=== PATIENT | female | born 1950 | race Caucasian/White ===

== ENCOUNTER 2017-04-21 00:37 | Emergency (ER) | payer OTHER ==
[2017-04-21 01:08] LABS: % EOSINOPHILS 2.3 % (0.0-5.0); % LYMPHOCYTES 41.1 % (20.0-50.0); % MONOCYTES 7.1 % (2.0-10.0); % NEUTROPHILS 49.5 % (40.0-80.0); EOSINOPHILE ABSOLUTE 0.1 Th/cmm (0.1-0.4); HEMATOCRIT 25.7 % (41.0-60); HEMOGLOBIN 8.4 gm/dL (12-16); LYMPHOCYTE ABSOLUTE 1.1 Th/cmm (1.5-3.0); MEAN CELL VOLUME 101.8 fl (81-100); MEAN CORPUSCULAR HEMOGLOBIN 33.5 pg (27.0-31.0); MEAN CORPUSCULAR HGB CONC 32.9 pg (28.0-36.0); MEAN PLATELET VOLUME 7.1 fl; MONOCYTE ABSOLUTE 0.2 Th/cmm (0.3-1.0); NEUTROPHILE ABSOLUTE 1.3 Th/cmm (1.8-8.0); PLATELET COUNT 42 Th/cmm (150-400); RED BLOOD COUNT 2.52 Mil/cmm (3.80-5.20); RED CELL DISTRIBUTION WIDTH 23.1 % (11.5-20.0)
[2017-04-21 01:16] LABS: WHITE BLOOD COUNT 2.7 Th/cmm (4.8-10.8)
[2017-04-21 01:40] LABS: ANION GAP 11.3 (7.0-16.0); CARBON DIOXIDE 28.7 mEq/L (21.0-31.0)
[2017-04-21 01:41] LABS: ALB/GLOB RATIO 0.9 (1.0-1.8); ALBUMIN 3.3 gm/dL (3.7-5.3); BILIRUBIN,TOTAL 3.3 mg/dL (0.3-1.0); CALCIUM SERUM 9.3 mg/dL (8.6-10.3); CREATININE - SERUM 4.4 mg/dL (0.6-1.2); GFR AFRICAN-AMERICAN 12.9 ml/min (>90); GFR NON AFRICAN-AMERICAN 10.7 ml/min
--- NOTE | 2017-04-21 01:51 | ED Physician Chart ---
ED Chief Complaint/HPI - Patient Information Date Seen:: 04/21/17 Time Seen:: 01:40 Chief Complaint:: Abdominal pain after missing dialysis a day ago History of Present Illness:: 66 yo female had liver cirrhosis, ascites and end stage kidney disease. She was discharged from [facility] a week ago. She had been on dialysis Mon-Wed-Wed. She missed dialysis one day ago. Subsequently, she developed right sided abdominal pain with nausea and vomiting today. The abdominal pain would not subside. She also had some cough with SOB. She was brought by BLS to [facility] ER. Allergies:: Allergies Allergy/AdvReac Type Severity Reaction Status Date / Time prednisone Allergy Verified 04/21/17 00:53 spironolactone Allergy Verified 04/21/17 00:53 [From Aldactone] Sulfa (Sulfonamide Allergy Verified 04/21/17 00:53 Antibiotics) Vitals:: Vital Signs - 8 hr 04/21/17 00:40 Temp 98.4 F HR 95 RR 18 BP 141/71 O2 Sat % 98 ED Review of Systems - Review of Systems General/Constitutional: No fever Skin: No rash, Other (jaundice) Head: No headache Eyes: No pain ENT: No nasal drainage Neck: No neck pain Cardio Vascular: edema Pulmonary: SOB GI: Nausea, Vomiting, Pain Musculoskeletal: Bone or joint pain, Other (Left knee pain) ED Past Medical History - Past Medical History Past Medical History: HTN, DM, ESRD, Thyroid disorder, Other (liver cirrhosis) Social History: Non Smoker, No Alcohol, No Drug Use Surgical History: Cholecystectomy Family Medical History - Family Member Mother Brother History Unknown: Yes ED Physical Exam - Physical Examination General/Constitutional: Awake Head: Atraumatic Eyes: PERRL Other Skin comments:: jaundice ENMT: Nasal exam nl Neck: No nuchal rigidity Other Respiratory comments:: Decreased right lung sound Cardio Vascular: RRR, No murmur, gallop, rubs, NL S1 S2 Other GI comments:: RUQ and RLQ tenderness, abdomen distention, umbilical hernia Neuro/Psych: Alert/oriented ED Labs/Radiology/EKG Results - Lab Results Results: Laboratory Tests 04/21/17 04/21/17 00:56 00:56 WBC 2.7 L RBC 2.52 L Hgb 8.4 L Hct 25.7 L MCV 101.8 H MCH 33.5 H MCHC Differential 32.9 RDW 23.1 H Plt Count 42 L MPV 7.1 Neutrophils % 49.5 Lymphocytes % 41.1 Monocytes % 7.1 Eosinophils % 2.3 Basophils % 0.0 Whole Bld Lactic Acid 2.22 H* - Radiology Results Results: CT abdomen/pelvis without contrast: large right-sided pleural effusion with adjacent atelectasis, cirrhosis, large ascites, splenomegaly with portosystemic collaterals ED Assessment - Assessment General Assessment: Large right pleural effusion Ascites Liver cirrhosis End stage renal disease Leukopenia Anemia Thrombocytopenia Left knee pain Assessment/Comments:: CBC, CMP, lipase CXR, CT abdomen without contrast Zosyn 3.375mg IV Patient to be transferred to [place] authorized by Dr. Hensley (#[id number]). ED Septic Shock - . Is Septic Shock (SBP<90, OR Lactate>4 mmol\L) present?: No - <6hrs of presentation: Vital Signs: Vital Signs - 8 hr 04/21/18 00:40 Temp 98.4 F HR 95 RR 18 BP 141/71 O2 Sat % 98 ED Reassessment (Disposition) - Reassessment Reassessment Condition:: Improved - Patient Disposition Discharge/Transfer:: Acute Care (other hosp) Accepting Physician:: Dr. Hensley
[2017-04-21] MEDS ORDERED: Piperacillin Sodium/Tazobact 3.375 gm Vial IV ONE (03:41)
[2017-04-21] MEDS ORDERED: Morphine Sulfate 2 mg/mL 1mL Syr ONE (03:53)
[2017-04-21] MEDS ORDERED: Morphine Sulfate 2 mg/mL 1mL Syr IV STA (03:53)
--- NOTE | 2017-04-21 07:52 | Diagnostic Imaging Report ---
Exam: Chest portable HISTORY: Cough. 5: Portable examination of chest at 0248 hours reviewed no prior studies available comparison. The study demonstrates extensive right-sided infiltrate with superimposed effusion. Right subclavian catheter terminates in superior vena cava. There is evidence for congestive heart failure bilaterally. The bony thorax intact. IMPRESSION: 1. Mild congestion 2. Right-sided infiltrate superimposed effusion follow-up dictation recommended.
--- NOTE | 2017-04-21 08:02 | Diagnostic Imaging Report ---
Exam: CT examination abdomen pelvis. HISTORY: Abdominal pain Total DLP equals 548 CTDI equals 10.5 Findings: Multiple contiguous thin section of the abdomen pelvis obtained from lower thorax to the pubic symphysis without administration of intravenous or oral contrast material. No prior studies available comparison. The study demonstrates extensive right-sided effusion superimposed pneumonia The visualized left lung parenchyma is well aerated. The study demonstrates cirrhotic appearance of liver parenchyma. There is evidence for ascitic fluid in the abdomen. There is evidence of previous cholecystectomy. There is evidence of splenomegaly. Pancreas poorly seen. There is evidence for left adrenal mass. The kidneys demonstrate no evidence of obstructive uropathy or nephrolithiasis. Induration of mesentery most likely due to fluid collection abdomen. There is evidence for ventral hernia with herniation of mesentery there is no evidence of bowel strangulation. There is evidence for fecal impaction. Urinary bladder is intact. There is evidence for anasarca. Bony structures demonstrate no evidence for lytic or blastic lesions. Total left hip prosthesis isn't visualized. There is a most likely old compression fracture of the L2, L1, T12 and T11 thoracic vertebrae. IMPRESSION: Right-sided pleural effusion pneumonia Cirrhotic liver Splenomegaly most likely portal hypertension. Status post cholecystectomy Left adrenal mass Fecal impaction Surgically absent uterus. Ventral hernia containing mesentery. Anasarca
== END 2017-04-21 07:10 | disposition short-term general hospital (02) ==
LOC: ER 00:37
DX: K70.31 Alcoholic cirrhosis of liver with ascites (principal); J91.8 Pleural effusion in other conditions classified elsewhere; I12.0 Hypertensive chronic kidney disease with stage 5 chronic kidney disease or end stage renal disease; E11.22 Type 2 diabetes mellitus with diabetic chronic kidney disease; N18.6 End stage renal disease; D64.9 Anemia, unspecified; D72.829 Elevated white blood cell count, unspecified; D69.6 Thrombocytopenia, unspecified; M25.562 Pain in left knee
CPT/HCPCS: 99285; 96365; 96375; 93005; 71045; 74176; 36415; 83605 ×2; 85025; 83690; 80053; 87040; J2270; J2405; J2543

== ENCOUNTER 2017-05-05 02:25 | Emergency (ER) | payer OTHER ==
--- NOTE | 2017-05-05 02:45 | ED Physician Chart ---
ED Chief Complaint/HPI - Patient Information Date Seen:: 05/05/17 Time Seen:: 02:40 Chief Complaint:: SOB History of Present Illness:: 66 yo female had ESRD on dialysis every Wed, Wed and Wednesday. She missed dialysis two days ago and had one rescue dialysis for 4 hours one day ago. After the dialysis, patient developed SOB and chest pain. The chest pain was intermittent, mostly in right chest radiating to the left chest. The SOB and chest pain gradually became worse and patient called 911 today. Allergies:: Allergies Allergy/AdvReac Type Severity Reaction Status Date / Time prednisone Allergy Verified 04/21/17 00:53 spironolactone Allergy Verified 04/21/17 00:53 [From Aldactone] Sulfa (Sulfonamide Allergy Verified 04/21/17 00:53 Antibiotics) <Marshall Blanco - Last Filed: 05/05/17 04:43> - Patient Information Allergies:: Allergies Allergy/AdvReac Type Severity Reaction Status Date / Time prednisone Allergy Verified 04/21/17 00:53 spironolactone Allergy Verified 04/21/17 00:53 [From Aldactone] Sulfa (Sulfonamide Allergy Verified 04/21/17 00:53 Antibiotics) Vitals:: Vital Signs - 8 hr 05/05/17 05/05/17 11:46 12:26 Temp 98.1 F 98.0 F HR 94 94 RR 13 14 BP 145/60 149/65 O2 Sat % 95 94 <Bradley Mantilla - Last Filed: 05/05/17 12:57> ED Review of Systems - Review of Systems General/Constitutional: No fever Skin: No rash Head: No headache Eyes: No pain ENT: No earache Neck: No neck pain Cardio Vascular: Chest pain Pulmonary: SOB, Cough, No sputum GI: Nausea, No vomiting Musculoskeletal: Other (Left knee pain) Neurological: No focal symptoms <Marshall Blanco - Last Filed: 05/05/17 04:43> ED Past Medical History - Past Medical History Past Medical History: HTN, DM, ESRD, Other (Liver cirrhosis due to fatty liver) Social History: Non Smoker, No Alcohol, No Drug Use Surgical History: Cholecystectomy, other <Marshall Blanco - Last Filed: 05/05/17 04:43> Family Medical History - Family Member Mother Brother History Unknown: Yes <Marshall Blanco - Last Filed: 05/05/17 04:43> ED Physical Exam - Physical Examination General/Constitutional: Awake, Alert Head: Atraumatic Eyes: PERRL Other Skin comments:: jaundice ENMT: Nasal exam nl Neck: No nuchal rigidity Other Respiratory comments:: Diminished lung sound RLL Cardio Vascular: RRR, NL S1 S2 Other Cardio Vascular comments:: II/ systolic murmurs GI: No tenderness/rebounding/guarding Extremities: No tenderness or effusion, No edema Neuro/Psych: Alert/oriented, No focal deficits <BellaJosdanae - Last Filed: 05/05/17 04:43> ED Labs/Radiology/EKG Results - Lab Results Results: Laboratory Results - last 24 hr 05/05/17 05/05/17 05/05/17 02:49 02:59 02:59 WBC 1.5 L* RBC 1.73 L Hgb 5.8 L* Hct 17.3 L* MCV 100.0 MCH 33.8 H MCHC Differential 33.8 RDW 18.4 Plt Count 23 L* MPV 6.9 PT INR PTT (Actin FS) D-Dimer Specimen Source ARTERIAL Sample Site RB pH 7.48 H pCO2 43.0 pO2 77.0 L HCO3 30.8 H Base Excess 7.6 H O2 Saturation 96.0 Audi Test Positive Vent Rate N/A Inspired O2 21 Tidal Volume N/A PEEP N/A Pressure (ins/psv/peep) N/A Critical Value MM,MARKETING TRAFFIC COORDINATOR Sodium 137 Potassium 3.6 Chloride 102 Carbon Dioxide 30.1 Anion Gap 8.5 BUN 23 Creatinine 2.1 H Est GFR ( Amer) 30.3 Est GFR (Non-Af Amer) 25.0 BUN/Creatinine Ratio 11.0 Glucose 143 H Whole Bld Lactic Acid Calcium 9.2 Total Bilirubin 2.1 H AST 32 ALT 13 Alkaline Phosphatase 111 H Troponin I B-Natriuretic Peptide Total Protein 6.7 Albumin 3.2 L Globulin 3.5 Albumin/Globulin Ratio 0.9 L 05/05/17 05/05/17 05/05/17 02:59 02:59 02:59 WBC RBC Hgb Hct MCV MCH MCHC Differential RDW Plt Count MPV PT 14.4 H INR 1.36 PTT (Actin FS) 43.5 H D-Dimer 2810 H Specimen Source Sample Site pH pCO2 pO2 HCO3 Base Excess O2 Saturation Audi Test Vent Rate Inspired O2 Tidal Volume PEEP Pressure (ins/psv/peep) Critical Value Sodium Potassium Chloride Carbon Dioxide Anion Gap BUN Creatinine Est GFR ( Amer) Est GFR (Non-Af Amer) BUN/Creatinine Ratio Glucose Whole Bld Lactic Acid 1.83 Calcium Total Bilirubin AST ALT Alkaline Phosphatase Troponin I B-Natriuretic Peptide Total Protein Albumin Globulin Albumin/Globulin Ratio 05/05/17 05/05/17 03:53 03:53 WBC RBC Hgb Hct MCV MCH MCHC Differential RDW Plt Count MPV PT INR PTT (Actin FS) D-Dimer Specimen Source Sample Site pH pCO2 pO2 HCO3 Base Excess O2 Saturation Audi Test Vent Rate Inspired O2 Tidal Volume PEEP Pressure (ins/psv/peep) Critical Value Sodium Potassium Chloride Carbon Dioxide Anion Gap BUN Creatinine Est GFR ( Amer) Est GFR (Non-Af Amer) BUN/Creatinine Ratio Glucose Whole Bld Lactic Acid Calcium Total Bilirubin AST ALT Alkaline Phosphatase Troponin I 0.01 B-Natriuretic Peptide 307.0 H Total Protein Albumin Globulin Albumin/Globulin Ratio - Radiology Results Results: CXR: right lung effusion <Marshall Blanco - Last Filed: 05/05/17 04:43> - Lab Results Results: Laboratory Tests 05/05/17 05/05/17 05/05/17 02:49 02:59 02:59 WBC 1.5 L* RBC 1.73 L Hgb 5.8 L* Hct 17.3 L* MCV 100.0 MCH 33.8 H MCHC Differential 33.8 RDW 18.4 Plt Count 23 L* MPV 6.9 Neutrophils % Band Neutrophils % 2 Lymphocytes % Monocytes % Eosinophils % Basophils % Neutrophils (Manual) 52 Lymphocytes 43 Eosinophils 3 Hypochromia 1+ Platelet Estimate DECREASED PLATELETS Poikilocytosis 1+ Anisocytosis 1+ Ovalocytes 1+ Schistocytes 1+ Smear Path Review YES PT INR PTT (Actin FS) D-Dimer Specimen Source ARTERIAL Sample Site RB pH 7.48 H pCO2 43.0 pO2 77.0 L HCO3 30.8 H Base Excess 7.6 H O2 Saturation 96.0 Audi Test Positive Vent Rate N/A Inspired O2 21 Tidal Volume N/A PEEP N/A Pressure (ins/psv/peep) N/A Critical Value MM,MARKETING TRAFFIC COORDINATOR Sodium 137 Potassium 3.6 Chloride 102 Carbon Dioxide 30.1 Anion Gap 8.5 BUN 23 Creatinine 2.1 H Est GFR ( Amer) 30.3 Est GFR (Non-Af Amer) 25.0 BUN/Creatinine Ratio 11.0 Glucose 143 H Whole Bld Lactic Acid Calcium 9.2 Total Bilirubin 2.1 H AST 32 ALT 13 Alkaline Phosphatase 111 H Troponin I B-Natriuretic Peptide Total Protein 6.7 Albumin 3.2 L Globulin 3.5 Albumin/Globulin Ratio 0.9 L Blood Type Antibody Screen Crossmatch 05/05/17 05/05/17 05/05/17 02:59 02:59 02:59 WBC RBC Hgb Hct MCV MCH MCHC Differential RDW Plt Count MPV Neutrophils % Band Neutrophils % Lymphocytes % Monocytes % Eosinophils % Basophils % Neutrophils (Manual) Lymphocytes Eosinophils Hypochromia Platelet Estimate Poikilocytosis Anisocytosis Ovalocytes Schistocytes Smear Path Review PT 14.4 H INR 1.36 PTT (Actin FS) 43.5 H D-Dimer 2810 H Specimen Source Sample Site pH pCO2 pO2 HCO3 Base Excess O2 Saturation Audi Test Vent Rate Inspired O2 Tidal Volume PEEP Pressure (ins/psv/peep) Critical Value Sodium Potassium Chloride Carbon Dioxide Anion Gap BUN Creatinine Est GFR ( Amer) Est GFR (Non-Af Amer) BUN/Creatinine Ratio Glucose Whole Bld Lactic Acid 1.83 Calcium Total Bilirubin AST ALT Alkaline Phosphatase Troponin I B-Natriuretic Peptide Total Protein Albumin Globulin Albumin/Globulin Ratio Blood Type Antibody Screen Crossmatch 05/05/17 05/05/17 05/05/17 03:53 03:53 03:53 WBC RBC Hgb Hct MCV MCH MCHC Differential RDW Plt Count MPV Neutrophils % Band Neutrophils % Lymphocytes % Monocytes % Eosinophils % Basophils % Neutrophils (Manual) Lymphocytes Eosinophils Hypochromia Platelet Estimate Poikilocytosis Anisocytosis Ovalocytes Schistocytes Smear Path Review PT INR PTT (Actin FS) D-Dimer Specimen Source Sample Site pH pCO2 pO2 HCO3 Base Excess O2 Saturation Auid Test Vent Rate Inspired O2 Tidal Volume PEEP Pressure (ins/psv/peep) Critical Value Sodium Potassium Chloride Carbon Dioxide Anion Gap BUN Creatinine Est GFR ( Amer) Est GFR (Non-Af Amer) BUN/Creatinine Ratio Glucose Whole Bld Lactic Acid Calcium Total Bilirubin AST ALT Alkaline Phosphatase Troponin I 0.01 B-Natriuretic Peptide 307.0 H Total Protein Albumin Globulin Albumin/Globulin Ratio Blood Type A POSITIVE Antibody Screen NEGATIVE Crossmatch See Detail 05/05/17 08:58 WBC 2.6 L RBC 2.32 L Hgb 7.4 L* Hct 22.2 L MCV 95.7 MCH 32.1 H MCHC Differential 33.5 RDW 21.3 H Plt Count 21 L* MPV 6.8 Neutrophils % 51.8 Band Neutrophils % Lymphocytes % 30.4 Monocytes % 13.5 H Eosinophils % 3.8 Basophils % 0.5 Neutrophils (Manual) Lymphocytes Eosinophils Hypochromia Platelet Estimate Poikilocytosis Anisocytosis Ovalocytes Schistocytes Smear Path Review PT INR PTT (Actin FS) D-Dimer Specimen Source Sample Site pH pCO2 pO2 HCO3 Base Excess O2 Saturation Audi Test Vent Rate Inspired O2 Tidal Volume PEEP Pressure (ins/psv/peep) Critical Value Sodium Potassium Chloride Carbon Dioxide Anion Gap BUN Creatinine Est GFR ( Amer) Est GFR (Non-Af Amer) BUN/Creatinine Ratio Glucose Whole Bld Lactic Acid Calcium Total Bilirubin AST ALT Alkaline Phosphatase Troponin I B-Natriuretic Peptide Total Protein Albumin Globulin Albumin/Globulin Ratio Blood Type Antibody Screen Crossmatch <Bradley Mantilla - Last Filed: 05/05/17 12:57> ED Assessment - Assessment General Assessment: Anemia of chronic kidney disease End stage kidney disease on dialysis PE Assessment/Comments:: CBC, CMP, UA, Trop I EKG, CXR Lovenox 60mg SC Transfer to [place] per Dr. Galindo <Marshall Blanco - Last Filed: 05/05/17 04:43> ED Septic Shock - . Is Septic Shock (SBP<90, OR Lactate>4 mmol\L) present?: No - <6hrs of presentation: Vital Signs: Vital Signs - 8 hr 05/05/17 05/05/17 11:46 12:26 Temp 98.1 F 98.0 F HR 94 94 RR 13 14 BP 145/60 149/65 O2 Sat % 95 94 <Bradley Mantilla - Last Filed: 05/05/17 12:57> ED Reassessment (Disposition) - Reassessment Reassessment Condition:: Improved - Diagnosis Diagnosis:: Anemia; Dyspnea; Chest Pain; ESRD - Aftercare/Follow up Instructions Aftercare/Follow-Up Instructions:: Counseled pt regarding lab results/diagnosis & need follow up, Counseled pt & family regarding lab results/diagnosis & need follow up - Patient Disposition Discharge/Transfer:: Acute Care (other hosp) Accepting Physician:: Dr. Mays Time Called:: 0700 Time Responded:: 07:00 Admitted to:: ICU Spoke to:: Dr. Mays Admitting Medical Physician:: Dr. Mays Condition at Disposition:: Stable, Improved <Bradley Mantilla - Last Filed: 05/05/17 12:57>
[2017-05-05 03:22] LABS: INR 1.36 (0.5-1.4); PROTHROMBIN TIME (TEST) 14.4 SECONDS (9.5-11.5)
[2017-05-05 03:28] LABS: ALB/GLOB RATIO 0.9 (1.0-1.8); ALBUMIN 3.2 gm/dL (3.7-5.3); ANION GAP 8.5 (7.0-16.0); BILIRUBIN,TOTAL 2.1 mg/dL (0.3-1.0); CALCIUM SERUM 9.2 mg/dL (8.6-10.3); CARBON DIOXIDE 30.1 mEq/L (21.0-31.0); CREATININE - SERUM 2.1 mg/dL (0.6-1.2); GFR AFRICAN-AMERICAN 30.3 ml/min (>90); POTASSIUM SERUM 3.6 mEq/L (3.5-5.1); TOTAL PROTEIN,SERUM 6.7 gm/dL (6.0-8.3)
[2017-05-05 03:29] LABS: pH 7.48 (7.35-7.45)
[2017-05-05 03:30] LABS: ALLEN TEST Positive
[2017-05-05 03:34] LABS: MEAN CORPUSCULAR HEMOGLOBIN 33.8 pg (27.0-31.0); MEAN CORPUSCULAR HGB CONC 33.8 pg (28.0-36.0); MEAN PLATELET VOLUME 6.9 fl; RED BLOOD COUNT 1.73 Mil/cmm (3.80-5.20); RED CELL DISTRIBUTION WIDTH 18.4 % (11.5-20.0)
[2017-05-05 03:39] LABS: MANUAL DIFF REQUIRED? YES; WHITE BLOOD COUNT 1.5 Th/cmm (4.8-10.8)
[2017-05-05 03:40] LABS: HEMATOCRIT 17.3 % (41.0-60); HEMOGLOBIN 5.8 gm/dL (12-16); PLATELET COUNT 23 Th/cmm (150-400)
[2017-05-05] MEDS ORDERED: Enoxaparin 60 mg/0.6 mL 0.6mL Syr SUBQ STA (03:42)
[2017-05-05] MEDS ORDERED: Enoxaparin 60 mg/0.6 mL 0.6mL Syr SUBQ ONE (03:49)
[2017-05-05] MEDS ORDERED: Morphine Sulfate 2 mg/mL 1mL Syr IV STA ×2 (04:27→08:38)
[2017-05-05 04:34] LABS: TOTAL CELLS COUNTED 100
[2017-05-05 04:35] LABS: ANISOCYTOSIS 1+; BAND NEUTROPHILE 2 % (0-10); EOSINOPHIL 3 % (0-5); HYPOCHROMIA 1+; LYMPHOCYTE 43 % (20-50); NEUTROPHILS 52 % (40-80); OVALOCYTES 1+; PLATELET ESTIMATE DECREASED PLATELETS (NORMAL); POIKILOCYTOSIS 1+; SCHISTOCYTES 1+
[2017-05-05] MEDS ORDERED: Morphine Sulfate 4 mg/mL 1mL Syr ONE ×2 (04:45→08:45)
--- NOTE | 2017-05-05 08:19 | Diagnostic Imaging Report ---
Portable chest x-ray HISTORY: Shortness of breath Compared with the prior exam of April 21, 2017, there is persistent yet decreased density in the right lower hemithorax consistent with a pleural effusion. A vascular catheter tip is noted in the upper region of the right atrium near the junction with the superior vena cava. IMPRESSION: 1. Evidence of persistent yet decreased right pleural effusion.
[2017-05-05 09:05] LABS: % BASOPHILS 0.5 % (0.0-2.0); % EOSINOPHILS 3.8 % (0.0-5.0); % LYMPHOCYTES 30.4 % (20.0-50.0); % MONOCYTES 13.5 % (2.0-10.0); % NEUTROPHILS 51.8 % (40.0-80.0); EOSINOPHILE ABSOLUTE 0.1 Th/cmm (0.1-0.4); HEMATOCRIT 22.2 % (41.0-60); HEMOGLOBIN 7.4 gm/dL (12-16); LYMPHOCYTE ABSOLUTE 0.8 Th/cmm (1.5-3.0); MEAN CELL VOLUME 95.7 fl (81-100); MEAN CORPUSCULAR HEMOGLOBIN 32.1 pg (27.0-31.0); MEAN CORPUSCULAR HGB CONC 33.5 pg (28.0-36.0); MEAN PLATELET VOLUME 6.8 fl; MONOCYTE ABSOLUTE 0.4 Th/cmm (0.3-1.0); NEUTROPHILE ABSOLUTE 1.3 Th/cmm (1.8-8.0); RED BLOOD COUNT 2.32 Mil/cmm (3.80-5.20); RED CELL DISTRIBUTION WIDTH 21.3 % (11.5-20.0); WHITE BLOOD COUNT 2.6 Th/cmm (4.8-10.8)
[2017-05-05 09:06] LABS: PLATELET COUNT 21 Th/cmm (150-400)
== END 2017-05-05 12:40 | disposition short-term general hospital (02) ==
LOC: ER 02:25
DX: R06.00 Dyspnea, unspecified (principal); D64.9 Anemia, unspecified; R07.9 Chest pain, unspecified; I12.0 Hypertensive chronic kidney disease with stage 5 chronic kidney disease or end stage renal disease; E11.22 Type 2 diabetes mellitus with diabetic chronic kidney disease; N18.6 End stage renal disease
CPT/HCPCS: 99285; 96372; 96374; 96375; 96376; 82803; 36600; 93005; 71045; 84484; 83880; 86900; 86850; 86922 ×3; 36415; 86901; 85379; 83605; 85007; 85027; 85025 ×2; 85610; 80053; 87040; 36430; P9016 ×2; J1650; J2060; J2405 ×2

== ENCOUNTER 2017-05-27 00:32 | Emergency (ER) | payer OTHER ==
[2017-05-27] MEDS ORDERED: Sodium Chloride 0.9% 1,000 ML IV ONE (00:46)
--- NOTE | 2017-05-27 00:50 | ED Physician Chart ---
ED Chief Complaint/HPI - Patient Information Date Seen:: 05/27/17 Time Seen:: 00:35 Chief Complaint:: Abdominal Pain History of Present Illness:: onset x one day of intermittent, diffuse, crampy abdominal pain, N/V/D x 3; no report of trauma, H/As, neck pain, C/P, SOB, A/C, fever, chills, or urinary s/s Allergies:: Allergies Allergy/AdvReac Type Severity Reaction Status Date / Time prednisone Allergy Verified 04/21/17 00:53 spironolactone Allergy Verified 04/21/17 00:53 [From Aldactone] Sulfa (Sulfonamide Allergy Verified 04/21/17 00:53 Antibiotics) Historian:: Patient, EMS Review:: Nurse's Note Reviewed, EMS run form Reviewed ED Review of Systems - Review of Systems General/Constitutional: No fever, No chills, No weight loss, No weakness, No diaphoresis, No edema, No loss of appetite Skin: No skin lesions, No rash, No bruising Head: No headache, No light-headedness Eyes: No loss of vision, No pain, No diplopia ENT: No earache, No nasal drainage, No sore throat, No tinnitus Neck: No neck pain, No swelling, No thyromegaly, No stiffness, No mass noted Cardio Vascular: No chest pain, No palpitations, No PND, No orthopnea, No edema Pulmonary: No SOB, No cough, No sputum, No wheezing GI: Nausea, Vomiting, Diarrhea, Pain, No melena, No hematochezia, No constipation, No hematemesis G/U: No dysuria, No frequency, No hematuria, No nacturia Environmental Remediation Consultant: No vaginal discharge, No abnormal vaginal bleed, No contraction Musculoskeletal: No bone or joint pain, No back pain, No muscle pain Endocrine: No polyuria, No polydipsia Psychiatric: No prior psych history, No depression, No anxiety, No suicidal ideation, No homicidal ideation, No auditory hallucination, No visual hallucination Hematopoietic: No bruising, No lymphadenopathy Allergic/Immuno: No urticaria, No angioedema Neurological: No syncope, No focal symptoms, No weakness, No paresthesia, No headache, No seizure, No dizziness, No confusion, No vertigo ED Past Medical History - Past Medical History Obtainable: Yes Past Medical History: HTN, DM, Dyslipidemia Family History: Diabetes Melitus, HTN Social History: Non Smoker, No Alcohol, No Drug Use, Surgical History: Cholecystectomy Psychiatricy History: None Medication: Reviewed Family Medical History - Family Member Mother Brother History Unknown: Yes ED Physical Exam - Physical Examination General/Constitutional: Awake, Well-developed, well-nourished, Alert, No distress, GCS 15, Non-toxic appearing, Ambulatory Head: Atraumatic Eyes: Lids, conjuctiva normal, PERRL, EOMI Skin: Nl inspection, No rash, No skin lesions, No ecchymosis, Well hydrated, No lymphadenopathy ENMT: External ears, nose nl, TM canals nl, Nasal exam nl, Lips, teeth, gums nl , Oropharynx nl, Tonsils nl Neck: Nontender, Full ROM w/o pain, No JVD, No nuchal rigidity, No bruit, No mass, No stridor Respiratory: Nl effort/Exclusion, Clear to Auscultation, No Wheeze/Rhonchi/Rales Cardio Vascular: RRR, No murmur, gallop, rubs, NL S1 S2, Carotid/Femoral/Distal pulses equal bilaterally GI: No tenderness/rebounding/guarding, No organomegaly, No hernia, Normal BS's, Nondistended, No mass/bruits, No McBurney tenderness, Rectum exam nl : No CVA tenderness Extremities: No tenderness or effusion, Full ROM, normal strength in all extremities, No edema, Normal digits & nails Neuro/Psych: Alert/oriented, DTR's symmetric, Normal sensory exam, Normal motor strength, Judgement/insight normal, Mood normal, Normal gait, No focal deficits Misc: Normal back, No paraspinal tenderness ED Labs/Radiology/EKG Results - Lab Results Comments:: H/H: 7.8/22.8; BNP: 2300; Na+: 133 - EKG Interpretations EKG Time:: 00:53 Rate & Rhythm: 66; NSR Comments:: T-wave inversions ED Septic Shock - . Is Septic Shock (SBP<90, OR Lactate>4 mmol\L) present?: No ED Reassessment (Disposition) - Reassessment Reassessment Condition:: Improved - Diagnosis Diagnosis:: Abdominal Pain; N/V/D; Myocardial Ischemia; DM; HTN; CHF; Anemia; Hyponatremia - Aftercare/Follow up Instructions Aftercare/Follow-Up Instructions:: Counseled pt regarding lab results/diagnosis & need follow up, Counseled pt & family regarding lab results/diagnosis & need follow up - Patient Disposition Discharge/Transfer:: Acute Care (other hosp) Accepting Physician:: [facility] Time Called:: 0200 Time Responded:: 02:00 Transport Method:: ACLS Admitted to:: Telemetry Spoke to:: [facility] Physician Admitting Medical Physician:: [facility] Condition at Disposition:: Stable, Improved
[2017-05-27 01:33] LABS: HEMATOCRIT 22.8 % (41.0-60); MEAN CELL VOLUME 93.5 fl (81-100); MEAN CORPUSCULAR HEMOGLOBIN 31.9 pg (27.0-31.0); MEAN CORPUSCULAR HGB CONC 34.2 pg (28.0-36.0); MEAN PLATELET VOLUME 8.1 fl; PLATELET COUNT 41 Th/cmm (150-400); RED BLOOD COUNT 2.43 Mil/cmm (3.80-5.20); RED CELL DISTRIBUTION WIDTH 20.9 % (11.5-20.0)
[2017-05-27 01:41] LABS: HEMOGLOBIN 7.8 gm/dL (12-16); WHITE BLOOD COUNT 3.3 Th/cmm (4.8-10.8)
[2017-05-27 01:42] LABS: MANUAL DIFF REQUIRED? YES
[2017-05-27 02:00] LABS: ALB/GLOB RATIO 0.8 (1.0-1.8); BILIRUBIN,TOTAL 2.4 mg/dL (0.3-1.0); INR 1.36 (0.5-1.4); POTASSIUM SERUM 3.6 mEq/L (3.5-5.1); PROTHROMBIN TIME (TEST) 14.3 SECONDS (9.5-11.5); TOTAL PROTEIN,SERUM 6.9 gm/dL (6.0-8.3)
[2017-05-27 02:24] LABS: ANION GAP 13.8 (7.0-16.0); CARBON DIOXIDE 25.8 mEq/L (21.0-31.0); CREATININE - SERUM 3.5 mg/dL (0.6-1.2); GFR AFRICAN-AMERICAN 16.8 ml/min (>90); GFR NON AFRICAN-AMERICAN 13.9 ml/min
[2017-05-27 05:00] LABS: BAND NEUTROPHILE 3 % (0-10); EOSINOPHIL 2 % (0-5); LYMPHOCYTE 23 % (20-50); MONOCYTE 7 % (2-10); NEUTROPHILS 65 % (40-80); PLATELET ESTIMATE DECREASED PLATELETS (NORMAL); TOTAL CELLS COUNTED 100
[2017-05-27 05:01] LABS: HYPOCHROMIA 2+; OVALOCYTES 2+
[2017-05-27 17:53] LABS: A1C % 5.9 % (4.0-6.0)
== END 2017-05-27 06:15 | disposition short-term general hospital (02) ==
LOC: ER 00:32
DX: I25.9 Chronic ischemic heart disease, unspecified (principal); I11.0 Hypertensive heart disease with heart failure; I50.9 Heart failure, unspecified; E11.9 Type 2 diabetes mellitus without complications; E87.1 Hypo-osmolality and hyponatremia; E78.5 Hyperlipidemia, unspecified; Z90.49 Acquired absence of other specified parts of digestive tract; Z88.2 Allergy status to sulfonamides; Z88.8 Allergy status to other drugs, medicaments and biological substances
CPT/HCPCS: 99285; 96361; 96374; 94760; 93005; 84484; 83880; 36415; 83605; 85007; 85027; 85025; 85610; 82150; 82550; 83036; 84703; 83690; 80053; 80061; 87040; J2405; J7030

== ENCOUNTER 2017-06-04 14:07 | Emergency (ER) | payer OTHER ==
--- NOTE | 2017-06-04 16:56 | ED Physician Chart ---
ED Chief Complaint/HPI - Patient Information Allergies:: Allergies Allergy/AdvReac Type Severity Reaction Status Date / Time prednisone Allergy Verified 04/21/17 00:53 spironolactone Allergy Verified 04/21/17 00:53 [From Aldactone] Sulfa (Sulfonamide Allergy Verified 04/21/17 00:53 Antibiotics) Vitals:: Vital Signs - 8 hr 06/04/17 06/04/17 06/04/17 19:07 20:31 22:02 Temp 98 F 98.3 F 98.3 F HR 83 83 83 RR 17 17 16 BP 175/75 146/65 O2 Sat % 100 100 <Vasquez eRnee - Last Filed: 06/04/17 23:21> - Patient Information Date Seen:: 06/04/17 Time Seen:: 16:53 Chief Complaint:: GI bleed History of Present Illness:: 66 yo female had abdominal pain and bloody diarrhea for 2 days. She had low grade fever, 99.4 F, nausea, without vomiting. Patient had end stage renal disease on hemodialysis every Wednesday, Wednesday, Wednesday. She missed today's dialysis due to abdominal pain and bloody diarrhea. Allergies:: Allergies Allergy/AdvReac Type Severity Reaction Status Date / Time prednisone Allergy Verified 04/21/17 00:53 spironolactone Allergy Verified 04/21/17 00:53 [From Aldactone] Sulfa (Sulfonamide Allergy Verified 04/21/17 00:53 Antibiotics) Vitals:: Vital Signs - 8 hr 06/04/17 14:21 Temp 97.5 F HR 75 RR 16 BP 175/75 <Marshall Blanco - Last Filed: 06/05/17 07:42> ED Review of Systems - Review of Systems General/Constitutional: No fever Skin: No bruising Head: No headache Eyes: No pain ENT: No nasal drainage Neck: No neck pain Cardio Vascular: No chest pain Pulmonary: No SOB GI: Nausea, No vomiting, Diarrhea, Pain, Hematochezia Neurological: No focal symptoms <Marshall Blanco - Last Filed: 06/05/17 07:42> ED Past Medical History - Past Medical History Past Medical History: HTN, DM, ESRD, Thyroid disorder, Other (liver cirrhosis) Social History: Non Smoker, No Alcohol, No Drug Use Surgical History: Cholecystectomy <Marshall Blanco - Last Filed: 06/05/17 07:42> Family Medical History - Family Member Mother Brother History Unknown: Yes <BellaJosdanae - Last Filed: 06/05/17 07:42> ED Physical Exam - Physical Examination General/Constitutional: Awake, Alert Eyes: PERRL Skin: No rash ENMT: Nasal exam nl Neck: No nuchal rigidity Respiratory: Clear to Auscultation Cardio Vascular: RRR, No murmur, gallop, rubs, NL S1 S2 Other GI comments:: RUQ and RLQ tenderness, abdomen distention, umbilical hernia Extremities: normal strength in all extremities Neuro/Psych: No focal deficits <Marshall Blanco - Last Filed: 06/05/17 07:42> ED Labs/Radiology/EKG Results - Lab Results Results: Laboratory Tests 06/04/17 06/04/17 06/04/17 17:15 17:15 17:15 WBC 2.1 L* RBC 2.55 L Hgb 8.2 L Hct 24.0 L MCV 94.0 MCH 32.2 H MCHC Differential 34.2 RDW 21.8 H Plt Count 25 L* MPV 7.3 Band Neutrophils % 1 Neutrophils (Manual) 59 Lymphocytes 38 Monocytes 2 Eosinophils 0 Basophils 0 Hypochromia 1+ Platelet Estimate DECREASED PLATELETS Anisocytosis 1+ PT 14.6 H INR 1.38 PTT (Actin FS) 40.1 H Sodium 140 Potassium 4.3 Chloride 103 Carbon Dioxide 28.7 Anion Gap 12.6 BUN 26 H Creatinine 2.7 H Est GFR ( Amer) 22.7 Est GFR (Non-Af Amer) 18.7 BUN/Creatinine Ratio 9.6 Glucose 175 H Whole Bld Lactic Acid Calcium 9.7 Total Bilirubin 4.1 H AST 47 H ALT 18 Alkaline Phosphatase 119 H Ammonia Total Protein 7.3 Albumin 3.0 L Globulin 4.3 Albumin/Globulin Ratio 0.7 L Lipase 22 Stool Occult Blood 06/04/17 06/04/17 06/04/17 17:15 17:15 18:35 WBC RBC Hgb Hct MCV MCH MCHC Differential RDW Plt Count MPV Band Neutrophils % Neutrophils (Manual) Lymphocytes Monocytes Eosinophils Basophils Hypochromia Platelet Estimate Anisocytosis PT INR PTT (Actin FS) Sodium Potassium Chloride Carbon Dioxide Anion Gap BUN Creatinine Est GFR ( Amer) Est GFR (Non-Af Amer) BUN/Creatinine Ratio Glucose Whole Bld Lactic Acid 1.95 Calcium Total Bilirubin AST ALT Alkaline Phosphatase Ammonia 58 H Total Protein Albumin Globulin Albumin/Globulin Ratio Lipase Stool Occult Blood POSITIVE H <Vasquez Renee - Last Filed: 06/04/17 23:21> ED Assessment - Assessment General Assessment: Lower GI bleed Liver cirrhosis ESRD on hemodialysis Assessment/Comments:: CBC, CMP, PT/PTT Occult stool test Dr. Renee assumed care on 19:00 <Marshall Blanco - Last Filed: 06/05/17 07:42> ED Septic Shock - <6hrs of presentation: Vital Signs: Vital Signs - 8 hr 06/04/17 06/04/17 06/04/17 19:07 20:31 22:02 Temp 98 F 98.3 F 98.3 F HR 83 83 83 RR 17 17 16 BP 175/75 146/65 O2 Sat % 100 100 <Vasquez Renee - Last Filed: 06/04/17 23:21> - . Is Septic Shock (SBP<90, OR Lactate>4 mmol\L) present?: No - <6hrs of presentation: Vital Signs: Vital Signs - 8 hr 06/04/17 14:21 Temp 97.5 F HR 75 RR 16 BP 175/75 <Marshall Blanco - Last Filed: 06/05/17 07:42> ED Reassessment (Disposition) - Diagnosis Diagnosis:: LOWER GI BLEEDING - Patient Disposition Discharge/Transfer:: Against Medical Advice (THE PATIENT LEFT AMA BECAUSE SHE DID WANT TO GO THE [facility] THAT WAS ASSIGNED TO HER.) <Vasquez Renee - Last Filed: 06/04/17 23:21> ED Discharge Plan <Vasquez Renee - Last Filed: 06/04/17 23:21> <Marshall Blanco - Last Filed: 06/05/17 07:42> - Patient Disposition Admit/Discharge/Transfer: AGAINST MEDICAL ADVICE Instructions: Anemia, Nonspecific-Brief, Gastrointestinal Bleeding, Discharge Against Medical Advice Additional Instructions: GO TO NEAREST ER IF SYMPTOMS PERSIST.
[2017-06-04 17:40] LABS: HEMOGLOBIN 8.2 gm/dL (12-16); MEAN CORPUSCULAR HEMOGLOBIN 32.2 pg (27.0-31.0); MEAN CORPUSCULAR HGB CONC 34.2 pg (28.0-36.0); MEAN PLATELET VOLUME 7.3 fl; RED BLOOD COUNT 2.55 Mil/cmm (3.80-5.20); RED CELL DISTRIBUTION WIDTH 21.8 % (11.5-20.0)
[2017-06-04 17:41] LABS: INR 1.38 (0.5-1.4); MANUAL DIFF REQUIRED? YES; PROTHROMBIN TIME (TEST) 14.6 SECONDS (9.5-11.5)
[2017-06-04 17:42] LABS: PLATELET COUNT 25 Th/cmm (150-400); WHITE BLOOD COUNT 2.1 Th/cmm (4.8-10.8)
[2017-06-04 17:56] LABS: ALB/GLOB RATIO 0.7 (1.0-1.8); ANION GAP 12.6 (7.0-16.0); BILIRUBIN,TOTAL 4.1 mg/dL (0.3-1.0); CALCIUM SERUM 9.7 mg/dL (8.6-10.3); CARBON DIOXIDE 28.7 mEq/L (21.0-31.0); CREATININE - SERUM 2.7 mg/dL (0.6-1.2); GFR AFRICAN-AMERICAN 22.7 ml/min (>90); GFR NON AFRICAN-AMERICAN 18.7 ml/min; POTASSIUM SERUM 4.3 mEq/L (3.5-5.1); TOTAL PROTEIN,SERUM 7.3 gm/dL (6.0-8.3)
[2017-06-04 18:05] LABS: BAND NEUTROPHILE 1 % (0-10); BASOPHIL 0 % (0-3); EOSINOPHIL 0 % (0-5); LYMPHOCYTE 38 % (20-50); MONOCYTE 2 % (2-10); NEUTROPHILS 59 % (40-80); TOTAL CELLS COUNTED 100
[2017-06-04 18:06] LABS: ANISOCYTOSIS 1+; HYPOCHROMIA 1+; PLATELET ESTIMATE DECREASED PLATELETS (NORMAL)
== END 2017-06-05 00:10 | disposition left against medical advice (07) ==
LOC: ER 14:07
DX: E11.22 Type 2 diabetes mellitus with diabetic chronic kidney disease (principal); I12.0 Hypertensive chronic kidney disease with stage 5 chronic kidney disease or end stage renal disease; N18.6 End stage renal disease; E07.9 Disorder of thyroid, unspecified; K74.60 Unspecified cirrhosis of liver; Z88.2 Allergy status to sulfonamides; Z88.1 Allergy status to other antibiotic agents; Z99.2 Dependence on renal dialysis; Z90.49 Acquired absence of other specified parts of digestive tract
CPT/HCPCS: 99284; 96374; 96375; 36415; 83605; 85007; 85027; 85025; 85610; 82270; 82140; 83690; 80053; 87040; C9113; J2060; Z7502

== ENCOUNTER 2017-06-16 01:08 | Emergency (ER) | payer OTHER ==
--- NOTE | 2017-06-16 02:50 | ED Physician Chart ---
ED Chief Complaint/HPI - Patient Information Date Seen:: 06/16/17 Time Seen:: 02:49 Chief Complaint:: Left hip pain History of Present Illness:: 66 yo female developed left hip pain after falling off bed. She called 911 and was taken to [facility] ER where she was diagnosed with left hip contusion. She was given lidocaine patch and was discharged home. She continued to have left hip pain and called 911 again. She requested to be taken to [facility] to have a "2nd opinion". Allergies:: Allergies Allergy/AdvReac Type Severity Reaction Status Date / Time prednisone Allergy Verified 04/21/17 00:53 spironolactone Allergy Verified 04/21/17 00:53 [From Aldactone] Sulfa (Sulfonamide Allergy Verified 04/21/17 00:53 Antibiotics) Vitals:: Vital Signs - 8 hr 06/16/17 01:13 Temp 98.5 F HR 74 RR 19 BP 138/52 O2 Sat % 96 ED Review of Systems - Review of Systems General/Constitutional: No fever Skin: No rash Head: No headache Eyes: No pain ENT: No nasal drainage Neck: No neck pain Cardio Vascular: No chest pain Pulmonary: No SOB GI: No nausea, No vomiting Musculoskeletal: Bone or joint pain Neurological: No syncope ED Past Medical History - Past Medical History Past Medical History: HTN, DM, ESRD (on hemodialysis M, W, F), Other (Liver cirrhosis due to fatty liver) Social History: Non Smoker, No Alcohol, No Drug Use Surgical History: Cholecystectomy Family Medical History - Family Member Mother Brother History Unknown: Yes ED Physical Exam - Physical Examination General/Constitutional: Awake Head: Atraumatic Eyes: PERRL Skin: No rash ENMT: Nasal exam nl Neck: No nuchal rigidity Respiratory: Clear to Auscultation Cardio Vascular: RRR, No murmur, gallop, rubs, NL S1 S2 GI: No tenderness/rebounding/guarding Other Extremities comments:: Left hip tenderness, with painful ROM of left hip, no shortening of LLE Neuro/Psych: Alert/oriented ED Labs/Radiology/EKG Results - Radiology Results Results: Left hip X ray: s/p total left hip arthroplasty. No acute fracture ED Assessment - Assessment General Assessment: Left hip pain ESRD on hemodialysis Assessment/Comments:: left hip X ray Toradol 30mg IM D/c home F/u PCP and hemodialysis AMA ED Septic Shock - . Is Septic Shock (SBP<90, OR Lactate>4 mmol\\L) present?: No - <6hrs of presentation: Vital Signs: Vital Signs - 8 hr 06/16/17 01:13 Temp 98.5 F HR 74 RR 19 BP 138/52 O2 Sat % 96 ED Reassessment (Disposition) - Reassessment Reassessment Condition:: Improved - Patient Disposition Discharge/Transfer:: Home ED Discharge Plan - Patient Disposition Admit/Discharge/Transfer: PT DISCHARGED HOME Instructions: Hip Pain Additional Instructions: follow up with your primary medical doctor ama avoid sleeping on the side of the affected hip
--- NOTE | 2017-06-16 08:07 | Diagnostic Imaging Report ---
Left hip 2 views Indication: Fall Comparison: none Findings: Patient is status post total left hip arthroplasty. No evidence of an acute fracture or hardware failure of the left hip. Osteopenia is noted. Incidentally noted is moderate degenerative changes right hip joint with osteophytic spurs which appear to arise from the right acetabulum. Degenerative changes in the lower lumbar spine are noted. There is slight irregularity of right greater trochanter. Impression: Status post total left hip arthroplasty. No evidence of the left hip fracture. Slight irregularity of the right greater trochanter. This may be projectional due to previous possibly old trauma. If there is concern for acute fracture in this region, dedicated right hip x-rays or CT may be obtained for further assessment. In the setting of trauma, if clinical symptoms persist and there is continued concern for an occult fracture, follow up exams in 5-7 days is suggested.
== END 2017-06-16 03:35 | disposition home or self-care (01) ==
LOC: ER 01:08
DX: M25.552 Pain in left hip (principal); E11.22 Type 2 diabetes mellitus with diabetic chronic kidney disease; I12.0 Hypertensive chronic kidney disease with stage 5 chronic kidney disease or end stage renal disease; N18.6 End stage renal disease; Z99.2 Dependence on renal dialysis; Z90.49 Acquired absence of other specified parts of digestive tract; Z88.2 Allergy status to sulfonamides; Z88.8 Allergy status to other drugs, medicaments and biological substances
CPT/HCPCS: 99284; 96372; 73502; J1885; 73501; Z7502

== ENCOUNTER 2017-07-01 03:36 | Emergency (ER) | payer OTHER ==
--- NOTE | 2017-07-01 04:23 | ED Physician Chart ---
ED Chief Complaint/HPI - Patient Information Date Seen:: 07/01/17 Time Seen:: 04:10 Chief Complaint:: abdominal pain History of Present Illness:: Patient developed umbilical pain at 0200 this morning. She vomited twice. She had no diarrhea. For the last 4 years patient's been on dialysis Wednesday. She missed dialysis yesterday because of scheduling problem. Patient developed umbilical hernia last week. Allergies:: Allergies Allergy/AdvReac Type Severity Reaction Status Date / Time prednisone Allergy Verified 04/21/17 00:53 spironolactone Allergy Verified 04/21/17 00:53 [From Aldactone] Sulfa (Sulfonamide Allergy Verified 04/21/17 00:53 Antibiotics) Vitals:: Vital Signs - 8 hr 07/01/17 03:44 Temp 98.1 F HR 107 RR 18 BP 138/75 O2 Sat % 97 Historian:: Patient, Family Member Review:: Nurse's Note Reviewed ED Review of Systems - Review of Systems General/Constitutional: No fever, No chills, No weight loss, No weakness, No diaphoresis, No edema, No loss of appetite Skin: No skin lesions, No rash, No bruising Head: No headache, No light-headedness Eyes: No loss of vision, No pain, No diplopia ENT: No earache, No nasal drainage, No sore throat, No tinnitus Neck: No neck pain, No swelling, No thyromegaly, No stiffness, No mass noted Cardio Vascular: No chest pain, No palpitations, No PND, No orthopnea, No edema Pulmonary: No SOB, No cough, No sputum, No wheezing GI: Nausea, Vomiting, No diarrhea, Pain, No melena, No hematochezia, No constipation, No hematemesis G/U: No dysuria, No frequency, No hematuria Musculoskeletal: No bone or joint pain, No back pain, No muscle pain Endocrine: No polyuria, No polydipsia Psychiatric: No prior psych history, No depression, No anxiety, No suicidal ideation Hematopoietic: No bruising, No lymphadenopathy Allergic/Immuno: No urticaria, No angioedema Neurological: No syncope, No focal symptoms, No weakness, No paresthesia, No headache, No seizure, No dizziness, No confusion, No vertigo ED Past Medical History - Past Medical History Past Medical History: HTN, DM, Other (cirrhosis) Family History: Heart disease, Diabetes Melitus, HTN, Other (cirrhosis) Social History: Non Smoker, No Alcohol Surgical History: other (left hip replacement; portacath) Psychiatricy History: None Medication: Reviewed Family Medical History - Family Member Mother Brother History Unknown: Yes ED Physical Exam - Physical Examination General/Constitutional: Awake, Well-developed, well-nourished, Alert, No distress, GCS 15, Non-toxic appearing, Ambulatory Head: Atraumatic Eyes: Lids, conjuctiva normal, PERRL, EOMI Skin: Nl inspection, No rash, No skin lesions, No ecchymosis, Well hydrated, No lymphadenopathy ENMT: External ears, nose nl, Nasal exam nl Other ENMT comments:: Edentulous with upper dentures Neck: Nontender, Full ROM w/o pain, No JVD, No nuchal rigidity, No bruit, No mass, No stridor Respiratory: Nl effort/Exclusion, Clear to Auscultation, No Wheeze/Rhonchi/Rales Cardio Vascular: RRR, No murmur, gallop, rubs, NL S1 S2 GI: No organomegaly, Normal BS's, Nondistended, No mass/bruits, No McBurney tenderness Other GI comments:: 6 cm tender umbilical hernia : No CVA tenderness Extremities: No tenderness or effusion, Full ROM, normal strength in all extremities, No edema, Normal digits & nails Neuro/Psych: Alert/oriented, DTR's symmetric, Normal sensory exam, Normal motor strength, Judgement/insight normal, Mood normal, Normal gait, No focal deficits Misc: Normal back, No paraspinal tenderness ED Labs/Radiology/EKG Results - Lab Results Results: Laboratory Results - last 24 hr 07/01/17 07/01/17 07/01/17 04:30 04:30 04:30 WBC 2.7 L RBC 3.20 L Hgb 10.1 L Hct 29.7 L MCV 93.0 MCH 31.6 H MCHC Differential 34.0 RDW 23.6 H Plt Count 26 L* MPV 7.1 Band Neutrophils % 4 Neutrophils (Manual) 54 Lymphocytes 28 Monocytes 10 Eosinophils 4 Platelet Estimate DECREASED PLATELETS Tear Drop Cells 1+ Ovalocytes 1+ [place] Cells 1+ Schistocytes 1+ Sodium 136 Potassium 4.5 Chloride 101 Carbon Dioxide 25.8 Anion Gap 13.7 BUN 36 H Creatinine 3.7 H Est GFR ( Amer) 15.8 Est GFR (Non-Af Amer) 13.0 BUN/Creatinine Ratio 9.7 Glucose 166 H Whole Bld Lactic Acid 1.58 Calcium 9.3 Total Bilirubin 3.5 H AST 29 ALT 7 Alkaline Phosphatase 106 H Total Protein 7.0 Albumin 2.8 L Globulin 4.2 Albumin/Globulin Ratio 0.7 L Lipase 17 - Radiology Results Results: CT abdomen and pelvis showed a large right pleural effusion, cirrhosis, splenomegaly cystitis, periumbilical hernia containing small bowel. No evidence of bowel obstruction. No free air, - EKG Interpretations Rate & Rhythm: sinus tachycardia with a rate of 105 [place]: normal Comments:: T wave changes in the anterior leads ED Assessment - Assessment General Assessment: At 0540 patient's pain was 8 out of 10; umbilical hernia is non-reducable ED Septic Shock - . Is Septic Shock (SBP<90, OR Lactate>4 mmol\L) present?: No - <6hrs of presentation: Vital Signs: Vital Signs - 8 hr //18 03:44 Temp 98.1 F HR 107 RR 18 BP 138/75 O2 Sat % 97 ED Reassessment (Disposition) - Reassessment Reassessment:: Talked to Dr. Blanc who gave authorization number [id number]. He stated patient's right pleural effusion is chronic. Patient be transferred to [facility]. Reassessment Condition:: Improved - Diagnosis Diagnosis:: Umbilical hernia; cirrhosis with ascites; anemia; thrombocytopenia; renal failure on dialysis; diverticulosis - Patient Disposition Discharge/Transfer:: Acute Care (other hosp) Transport Method:: BLS Condition at Disposition:: Stable, Improved
[2017-07-01] MEDS ORDERED: Morphine Sulfate 4 mg/mL 1mL Syr ONE (04:32)
[2017-07-01] MEDS: Morphine Sulfate 2 mg/mL 1mL Syr IV STA (04:35)
[2017-07-01 04:48] LABS: HEMOGLOBIN 10.1 gm/dL (12-16); RED CELL DISTRIBUTION WIDTH 23.6 % (11.5-20.0)
[2017-07-01 04:50] LABS: HEMATOCRIT 29.7 % (41.0-60); MEAN CORPUSCULAR HEMOGLOBIN 31.6 pg (27.0-31.0); MEAN PLATELET VOLUME 7.1 fl
[2017-07-01 04:52] LABS: PLATELET COUNT 26 Th/cmm (150-400); WHITE BLOOD COUNT 2.7 Th/cmm (4.8-10.8)
[2017-07-01 04:53] LABS: MANUAL DIFF REQUIRED? YES
[2017-07-01 05:20] LABS: NEUTROPHILS 54 % (40-80); TOTAL CELLS COUNTED 100
[2017-07-01 05:21] LABS: BAND NEUTROPHILE 4 % (0-10); BURR CELLS 1+; EOSINOPHIL 4 % (0-5); LYMPHOCYTE 28 % (20-50); MONOCYTE 10 % (2-10); OVALOCYTES 1+; PLATELET ESTIMATE DECREASED PLATELETS (NORMAL); SCHISTOCYTES 1+; TEAR DROP CELLS 1+
[2017-07-01 05:29] LABS: ALB/GLOB RATIO 0.7 (1.0-1.8); ALBUMIN 2.8 gm/dL (3.7-5.3); ANION GAP 13.7 (7.0-16.0); BILIRUBIN,TOTAL 3.5 mg/dL (0.3-1.0); CALCIUM SERUM 9.3 mg/dL (8.6-10.3); CARBON DIOXIDE 25.8 mEq/L (21.0-31.0); CREATININE - SERUM 3.7 mg/dL (0.6-1.2); GFR AFRICAN-AMERICAN 15.8 ml/min (>90); POTASSIUM SERUM 4.5 mEq/L (3.5-5.1)
[2017-07-01] MEDS ORDERED: Bacitracin pkt 1 gm Pkt TP ONE (06:45)
[2017-07-01] MEDS: Bacitracin pkt 1 gm Pkt TP STA (06:49)
--- NOTE | 2017-07-01 09:07 | Diagnostic Imaging Report ---
CT abdomen and pelvis without intravenous contrast Indication: Abdominal pain, umbilical hernia Comparison: CT abdomen and pelvis performed on 04/21/2017, Technique: Axial images were obtained from the lung bases to the bilateral proximal femurs without IV contrast. Coronal reconstructions were made. total DLP: 482, CTDI8.9 FINDINGS: Exam is limited due to lack of IV contrast. Partially visualized vascular catheter is seen terminating and within the right atrium. There is a large right effusion. Right lung consolidative changes are noted. Bibasal atelectatic changes are also noted. Cirrhotic liver is noted. No obvious focal lesions identified on this limited noncontrast exam. The patient is status post cholecystectomy. Mild splenomegaly is noted with spleen measuring 13 cm. No focal lesions identified. Limited assessment of the pancreas demonstrates no focal lesions. The adrenal glands are suboptimally evaluated due to patient's upper quadrant varices, particularly of the left upper quadrant. Diffuse ascites is noted with haziness inflammatory change throughout the mesentery. Copious amount of stool is seen throughout the colon. Appendix is not visualized. A ventral midline hernia is noted containing loops of bowel. Diffuse anasarca is noted. Mild atherosclerosis is noted. Degenerative changes of the spine and pelvis are noted. Osteopenia is noted. Mild multilevel chronic vertebral body loss of height is noted. IMPRESSION: Midline ventral hernia containing bowel loops. Early obstructive process cannot be completely excluded. Clinical correlation and follow-up recommended Diffuse ascites and diffuse inflammatory changes seen throughout the mesentery. Copious stool throughout the colon suggestive of constipation. Diffuse anasarca. Markedly cirrhotic liver. Varices are also noted greatest along the left upper quadrant. Evidence of prior cholecystectomy,. Mild splenomegaly. Large right pleural effusion and right basal passive atelectatic and consolidative changes. Evidence of left hip arthroplasty.
== END 2017-07-01 07:31 | disposition short-term general hospital (02) ==
LOC: ER 03:36
DX: K42.9 Umbilical hernia without obstruction or gangrene (principal); K74.60 Unspecified cirrhosis of liver; D64.9 Anemia, unspecified; D69.6 Thrombocytopenia, unspecified; N19 Unspecified kidney failure; K57.90 Diverticulosis of intestine, part unspecified, without perforation or abscess without bleeding; E11.9 Type 2 diabetes mellitus without complications; I10 Essential (primary) hypertension; Z99.2 Dependence on renal dialysis; Z88.2 Allergy status to sulfonamides; Z88.8 Allergy status to other drugs, medicaments and biological substances
CPT/HCPCS: 99285; 96374; 96375; 93005; 74176; 36415; 83605; 85007; 85027; 85025; 83690; 80053; 87040; J2405

== ENCOUNTER 2017-07-14 21:00 | Emergency (ER) | payer OTHER ==
--- NOTE | 2017-07-14 21:14 | ED Physician Chart ---
ED Chief Complaint/HPI - Patient Information Date Seen:: 07/14/17 Time Seen:: 20:50 Chief Complaint:: Flank Pain History of Present Illness:: onset x 2 days of intermittent flank/back pain; no report of trauma, H/As, S/T, neck pain, C/P, SOB, cough, Abd. Pain, A/N/V/D/C, fever, chills, bleeding, or urinary s/s Allergies:: Allergies Allergy/AdvReac Type Severity Reaction Status Date / Time prednisone Allergy Verified 04/21/17 00:53 spironolactone Allergy Verified 04/21/17 00:53 [From Aldactone] Sulfa (Sulfonamide Allergy Verified 04/21/17 00:53 Antibiotics) Historian:: Patient, EMS Review:: Nurse's Note Reviewed, Old Chart Reviewed, EMS run form Reviewed ED Review of Systems - Review of Systems General/Constitutional: Fever, No chills, No weight loss, No weakness, No diaphoresis, No edema, No loss of appetite Skin: No skin lesions, No rash, No bruising Head: No headache, No light-headedness Eyes: No loss of vision, No pain, No diplopia ENT: No earache, No nasal drainage, No sore throat, No tinnitus Neck: No neck pain, No swelling, No thyromegaly, No stiffness, No mass noted Cardio Vascular: No chest pain, No palpitations, No PND, No orthopnea, No edema Pulmonary: SOB, Cough, No sputum, Wheezing GI: No nausea, No vomiting, No diarrhea, No pain, No melena, No hematochezia, No constipation, No hematemesis G/U: No dysuria, No frequency, No hematuria, No nacturia Pattern Setter: No vaginal discharge, No abnormal vaginal bleed, No contraction Musculoskeletal: No bone or joint pain, No back pain, No muscle pain Endocrine: No polyuria, No polydipsia Psychiatric: No prior psych history, No depression, No anxiety, No suicidal ideation, No homicidal ideation, No auditory hallucination, No visual hallucination Hematopoietic: No bruising, No lymphadenopathy Allergic/Immuno: No urticaria, No angioedema Neurological: No syncope, No focal symptoms, No weakness, No paresthesia, No headache, No seizure, No dizziness, No confusion, No vertigo ED Past Medical History - Past Medical History Obtainable: Yes Past Medical History: HTN, DM, Asthma/COPD Family History: Diabetes Melitus, HTN Social History: Non Smoker, No Alcohol, No Drug Use, Surgical History: other (Left Hip/Knee Replacement) Psychiatricy History: None Medication: Reviewed Family Medical History - Family Member Mother Brother History Unknown: Yes ED Physical Exam - Physical Examination General/Constitutional: Awake, Well-developed, well-nourished, Alert, No distress, GCS 15, Non-toxic appearing, Ambulatory Head: Atraumatic Eyes: Lids, conjuctiva normal, PERRL, EOMI Skin: Nl inspection, No rash, No skin lesions, No ecchymosis, Well hydrated, No lymphadenopathy ENMT: External ears, nose nl, TM canals nl, Nasal exam nl, Lips, teeth, gums nl , Oropharynx nl, Tonsils nl Neck: Nontender, Full ROM w/o pain, No JVD, No nuchal rigidity, No bruit, No mass, No stridor Other Neck comments:: supple; no meningeal signs; no cervical tenderness Respiratory: Nl effort/Exclusion Other Respiratory comments:: Lungs: + Rales and Rhonchi Cardio Vascular: RRR, No murmur, gallop, rubs, NL S1 S2, Carotid/Femoral/Distal pulses equal bilaterally GI: No tenderness/rebounding/guarding, No organomegaly, No hernia, Normal BS's, Nondistended, No mass/bruits, No McBurney tenderness, Rectum exam nl Other GI comments:: no pulsatile masses : No CVA tenderness Extremities: No tenderness or effusion, Full ROM, normal strength in all extremities, No edema, Normal digits & nails Neuro/Psych: Alert/oriented, DTR's symmetric, Normal sensory exam, Normal motor strength, Judgement/insight normal, Mood normal, Normal gait, No focal deficits Misc: Normal back, No paraspinal tenderness ED Labs/Radiology/EKG Results - Lab Results Comments:: WBC: 2.7; H/H: + Anemia; LA: 2.5; BUN: 38; Cr: 4.0; Glucose: 264 - Radiology Results Comments:: CXR: + Infiltrate; Abd./Pelvis CAT Scan: NAD - EKG Interpretations EKG Time:: 21:50 Rate & Rhythm: 78; NSR Comments:: PACs; T-Wave Inversions in III, V1, V2, and V3 ED Septic Shock - . Is Septic Shock (SBP<90, OR Lactate>4 mmol\L) present?: No ED Reassessment (Disposition) - Reassessment Reassessment Condition:: Improved - Diagnosis Diagnosis:: Dx: Flank Pain; Sepsis; Leukopenia; ESRD; Hyperglycemia; DM; Anemia; PNA; Lactic Acidosis; Back Pain; Myocardial Ischemia - Aftercare/Follow up Instructions Aftercare/Follow-Up Instructions:: Counseled pt regarding lab results/diagnosis & need follow up, Counseled pt & family regarding lab results/diagnosis & need follow up - Patient Disposition Discharge/Transfer:: Acute Care (other hosp) Accepting Physician:: Dr. Fofana Time Called:: 2249 Time Responded:: 22:50 Admitted to:: Med/Surg Spoke to:: Dr. Fofana Admitting Medical Physician:: Dr. Fofana Condition at Disposition:: Stable, Improved ED Discharge Plan - Patient Disposition Admit/Discharge/Transfer: TRANSFER TO ACUTE HOSP
[2017-07-14 21:28] LABS: EOSINOPHILE ABSOLUTE 0.1 Th/cmm (0.1-0.4); LYMPHOCYTE ABSOLUTE 0.8 Th/cmm (1.5-3.0); MEAN CORPUSCULAR HEMOGLOBIN 31.4 pg (27.0-31.0); MONOCYTE ABSOLUTE 0.3 Th/cmm (0.3-1.0); PLATELET COUNT 35 Th/cmm (150-400)
[2017-07-14 21:31] LABS: % BASOPHILS 0.1 % (0.0-2.0); % EOSINOPHILS 2.6 % (0.0-5.0); % LYMPHOCYTES 29.6 % (20.0-50.0); % MONOCYTES 11.5 % (2.0-10.0); % NEUTROPHILS 56.2 % (40.0-80.0); HEMATOCRIT 28.1 % (41.0-60); HEMOGLOBIN 9.5 gm/dL (12-16); MEAN CELL VOLUME 93.1 fl (81-100); MEAN CORPUSCULAR HGB CONC 33.7 pg (28.0-36.0); MEAN PLATELET VOLUME 8.8 fl; NEUTROPHILE ABSOLUTE 1.5 Th/cmm (1.8-8.0); RED BLOOD COUNT 3.02 Mil/cmm (3.80-5.20); RED CELL DISTRIBUTION WIDTH 26.9 % (11.5-20.0)
[2017-07-14 21:37] LABS: WHITE BLOOD COUNT 2.7 Th/cmm (4.8-10.8)
[2017-07-14 21:41] LABS: INR 1.24 (0.5-1.4)
[2017-07-14 21:45] LABS: ALB/GLOB RATIO 0.9 (1.0-1.8); ALBUMIN 3.3 gm/dL (3.7-5.3); CALCIUM SERUM 9.5 mg/dL (8.6-10.3); CARBON DIOXIDE 26.6 mEq/L (21.0-31.0); GFR AFRICAN-AMERICAN 14.4 ml/min (>90); GFR NON AFRICAN-AMERICAN 11.9 ml/min; POTASSIUM SERUM 4.6 mEq/L (3.5-5.1); TOTAL PROTEIN,SERUM 6.8 gm/dL (6.0-8.3)
[2017-07-14] MEDS ORDERED: cefTRIAXone 1 GM in Sodium Chloride 0.9% 50 ML IV ONE (21:51)
[2017-07-14] MEDS ORDERED: Morphine Sulfate 2 mg/mL 1mL Syr IV STA (22:28)
[2017-07-14] MEDS ORDERED: Morphine Sulfate 2 mg/mL 1mL Syr ONE (22:33)
--- NOTE | 2017-07-15 08:12 | Diagnostic Imaging Report ---
CHEST X-RAY: AP view INDICATION: pain COMPARISON: 05/05/2017 FINDINGS: Right dialysis catheter is stable. Low lung volumes are seen with CHF and right lung density. Cardiomegaly is noted. IMPRESSION: Persistent low lung volumes with CHF and right lung density likely due to a pleural effusion. There is likely superimposed pneumonia of the right lung.
--- NOTE | 2017-07-15 08:41 | Diagnostic Imaging Report ---
CT abdomen and pelvis without intravenous contrast Indication: Back pain, flank pain Comparison: CT abdomen and pelvis on 07/01/2017, Technique: Axial images were obtained from the lung bases to the bilateral proximal femurs without IV contrast. Coronal reconstructions were made. total DLP: 414, CTDI8 FINDINGS: There is a moderate to large right-sided the pleural effusion with right basal compressive atelectasis consolidation changes. Additional left basal atelectatic changes are also noted. Partially visualized vascular catheter is noted remaining at the cavoatrial junction. Assessment of solid organs is limited due to lack of IV contrast. Severely cirrhotic liver is noted with no obvious focal lesions. There is evidence of prior cholecystectomy. Splenomegaly is noted. Limited assessment of the pancreas demonstrates no obvious focal lesions. Adrenal glands are poorly visualized. There appear to be varicosities of the upper abdomen. No evidence of hydronephrosis or nephrolithiasis. There has been reduction of previous midline ventral hernia with small fat-containing hernia seen in this region near the umbilicus with mild inflammatory changes also noted. There is evidence of prior hysterectomy. Distal fecal impaction seen with rectal wall thickening. Copious amount of stool is seen throughout the colon. The appendix is not visualized. Mild ascites is noted with generalized inflammatory changes seen throughout the abdominal pelvic fat planes. Mild atherosclerosis is noted. No evidence of free air. Left hip arthroplasty is noted. Osteopenia is seen with a previous mild spinal compression deformities. Degenerative changes of spine and pelvis are noted. Anasarca is noted. IMPRESSION: Mild ascites. Generalized inflammatory changes of the abdomen pelvis are also noted. Severely cirrhotic liver. There appears to be varices which may be due to underlying portal hypertension. Splenomegaly is also noted. Distal fecal impaction. Mild rectal wall thickening is seen which may be due to underlying infectious/inflammatory process. Copious stool is also noted. Interval reduction of previous abdominal ventral hernia. Small fat-containing ventral hernia is seen with mild inflammatory changes in this region. No gross bowel herniation at this time. Clinical correlation is needed. Evidence of prior cholecystectomy and hysterectomy. Anasarca. Moderate to large right effusion right basal passive atelectatic and consolidative changes. Mild atherosclerosis. Please refer to above for details.
[2017-07-15 17:30] LABS: A1C % 5.9 % (4.0-6.0)
== END 2017-07-15 01:41 | disposition short-term general hospital (02) ==
LOC: ER 21:00
DX: A41.9 Sepsis, unspecified organism (principal); E11.22 Type 2 diabetes mellitus with diabetic chronic kidney disease; I12.0 Hypertensive chronic kidney disease with stage 5 chronic kidney disease or end stage renal disease; N18.6 End stage renal disease; E11.65 Type 2 diabetes mellitus with hyperglycemia; I25.9 Chronic ischemic heart disease, unspecified; D72.819 Decreased white blood cell count, unspecified; E87.2 Acidosis; D64.9 Anemia, unspecified; J44.9 Chronic obstructive pulmonary disease, unspecified; J45.909 Unspecified asthma, uncomplicated; Z88.2 Allergy status to sulfonamides; Z88.8 Allergy status to other drugs, medicaments and biological substances
CPT/HCPCS: 99285; 96365; 96375; 93005; 71045; 74176; 84484; 36415; 83605 ×2; 85025; 85610; 85730; 82550; 83036; 80053; 87040 ×2; J2270; J0696

== ENCOUNTER 2017-07-19 14:55 | Emergency (ER) | payer OTHER ==
--- NOTE | 2017-07-19 15:34 | ED Physician Chart ---
ED Chief Complaint/HPI - Patient Information Date Seen:: 07/19/17 Time Seen:: 14:55 Chief Complaint:: Back Pain History of Present Illness:: onset x 3 days of intermittent, MS type back pain; pt denies trauma, H/As, S/T, neck pain, cough, C/P, SOB, Abd. Pain, A/N/V/D/C, fever, chills, or urinary s/s Allergies:: Allergies Allergy/AdvReac Type Severity Reaction Status Date / Time prednisone Allergy Verified 07/19/17 15:04 spironolactone Allergy Verified 07/19/17 15:04 [From Aldactone] Sulfa (Sulfonamide Allergy Verified 07/19/17 15:04 Antibiotics) Vitals:: Vital Signs - 8 hr 07/19/17 14:55 Temp 98.9 F HR 81 RR 16 BP 136/65 O2 Sat % 94 Historian:: Patient, EMS Review:: Nurse's Note Reviewed, Old Chart Reviewed, EMS run form Reviewed <Bradley Mantilla - Last Filed: 07/19/17 19:05> - Patient Information Allergies:: Allergies Allergy/AdvReac Type Severity Reaction Status Date / Time prednisone Allergy Verified 07/19/17 15:04 spironolactone Allergy Verified 07/19/17 15:04 [From Aldactone] Sulfa (Sulfonamide Allergy Verified 07/19/17 15:04 Antibiotics) Vitals:: Vital Signs - 8 hr 07/19/17 07/19/17 07/19/17 14:55 17:37 18:00 Temp 98.9 F 97.6 F 97.2 F HR 81 71 71 RR 16 15 16 BP 136/65 149/62 136/55 O2 Sat % 94 99 99 <Roddy Banegas - Last Filed: 07/19/17 19:49> ED Review of Systems - Review of Systems General/Constitutional: No fever, No chills, No weight loss, No weakness, No diaphoresis, No edema, No loss of appetite Skin: No skin lesions, No rash, No bruising Head: No headache, No light-headedness Eyes: No loss of vision, No pain, No diplopia ENT: No earache, No nasal drainage, No sore throat, No tinnitus Neck: No neck pain, No swelling, No thyromegaly, No stiffness, No mass noted Cardio Vascular: No chest pain, No palpitations, No PND, No orthopnea, No edema Pulmonary: No SOB, No cough, No sputum, No wheezing GI: No nausea, No vomiting, No diarrhea, No pain, No melena, No hematochezia, No constipation, No hematemesis G/U: No dysuria, No frequency, No hematuria, No nacturia Cigarette Filter Inspector: No vaginal discharge, No abnormal vaginal bleed, No contraction Musculoskeletal: No bone or joint pain, Back pain, No muscle pain Endocrine: No polyuria, No polydipsia Psychiatric: No prior psych history, No depression, No anxiety, No suicidal ideation, No homicidal ideation, No auditory hallucination, No visual hallucination Hematopoietic: No bruising, No lymphadenopathy Allergic/Immuno: No urticaria, No angioedema Neurological: No syncope, No focal symptoms, No weakness, No paresthesia, No headache, No seizure, No dizziness, No confusion, No vertigo <Bradley Mantilla - Last Filed: 07/19/17 19:05> ED Past Medical History - Past Medical History Obtainable: Yes Past Medical History: HTN, DM, ESRD Family History: Diabetes Melitus, HTN Social History: No Alcohol, No Drug Use, Surgical History: None Psychiatricy History: None Medication: Reviewed <Bradley Mantilla Last Filed: 07/19/17 19:05> Family Medical History - Family Member Mother Brother History Unknown: Yes <JessicaJillian garibayil [facility] Filed: 07/19/17 19:05> ED Physical Exam - Physical Examination General/Constitutional: Awake, Well-developed, well-nourished, Alert, No distress, GCS 15, Non-toxic appearing, Ambulatory Head: Atraumatic Eyes: Lids, conjuctiva normal, PERRL, EOMI Skin: Nl inspection, No rash, No skin lesions, No ecchymosis, Well hydrated, No lymphadenopathy ENMT: External ears, nose nl, TM canals nl, Nasal exam nl, Lips, teeth, gums nl , Oropharynx nl, Tonsils nl Neck: Nontender, Full ROM w/o pain, No JVD, No nuchal rigidity, No bruit, No mass, No stridor Respiratory: Nl effort/Exclusion, Clear to Auscultation, No Wheeze/Rhonchi/Rales Cardio Vascular: RRR, No murmur, gallop, rubs, NL S1 S2, Carotid/Femoral/Distal pulses equal bilaterally GI: No tenderness/rebounding/guarding, No organomegaly, No hernia, Normal BS's, Nondistended, No mass/bruits, No McBurney tenderness : No CVA tenderness Extremities: No tenderness or effusion, Full ROM, normal strength in all extremities, No edema, Normal digits & nails Neuro/Psych: Alert/oriented, DTR's symmetric, Normal sensory exam, Normal motor strength, Judgement/insight normal, Mood normal, Normal gait, No focal deficits Misc: Normal back, No paraspinal tenderness <Bradley Mantilla - Last Filed: 07/19/17 19:05> ED Labs/Radiology/EKG Results - Lab Results Comments:: H/H: 8.6/24.9; WBC: 3.8; BUN: 58; Cr: 5.8; Glucose: 307; BNP: 553 - Radiology Results Comments:: X-rays: + Right Pleural Effusion; Right Lung Infiltrate - EKG Interpretations EKG Time:: 16:06 Rate & Rhythm: 72; NSR Comments:: non-specific st-t changes <Bradley Mantilla - Last Filed: 07/19/17 19:05> - Lab Results Results: Laboratory Tests 07/19/17 07/19/17 07/19/17 15:45 15:45 15:45 WBC 3.8 L RBC 2.67 L Hgb 8.6 L Hct 24.9 L MCV 93.4 MCH 32.3 H MCHC Differential 34.5 RDW 26.3 H Plt Count 48 L MPV 7.5 Band Neutrophils % 0 Neutrophils (Manual) 64 Lymphocytes 22 Monocytes 10 Eosinophils 4 Basophils 0 Platelet Estimate DECREASED PLATELETS Platelet Morphology NORMAL Anisocytosis 3+ RBC Morph Micro Appear ABNORMAL PT 12.1 H INR 1.15 Sodium 134 L Potassium 5.2 H Chloride 103 Carbon Dioxide 22.6 Anion Gap 13.6 BUN 58 H Creatinine 5.8 H* Est GFR ( Amer) 9.4 Est GFR (Non-Af Amer) 7.7 BUN/Creatinine Ratio 10.0 Glucose 307 H Whole Bld Lactic Acid Calcium 9.0 Total Bilirubin 2.1 H AST 27 ALT 12 Alkaline Phosphatase 93 Creatine Kinase 30 Troponin I B-Natriuretic Peptide Total Protein 6.6 Albumin 2.8 L Globulin 3.8 Albumin/Globulin Ratio 0.7 L Triglycerides 79 Cholesterol 110 LDL Cholesterol Direct 57 L HDL Cholesterol 17 L 07/19/17 07/19/17 07/19/17 15:45 15:45 16:49 WBC RBC Hgb Hct MCV MCH MCHC Differential RDW Plt Count MPV Band Neutrophils % Neutrophils (Manual) Lymphocytes Monocytes Eosinophils Basophils Platelet Estimate Platelet Morphology Anisocytosis RBC Morph Micro Appear PT INR Sodium Potassium Chloride Carbon Dioxide Anion Gap BUN Creatinine Est GFR ( Amer) Est GFR (Non-Af Amer) BUN/Creatinine Ratio Glucose Whole Bld Lactic Acid 5.23 H* Calcium Total Bilirubin AST ALT Alkaline Phosphatase Creatine Kinase Troponin I 0.03 B-Natriuretic Peptide 553.0 H Total Protein Albumin Globulin Albumin/Globulin Ratio Triglycerides Cholesterol LDL Cholesterol Direct HDL Cholesterol <Roddy Banegas - Last Filed: 07/19/17 19:49> ED Assessment - Assessment General Assessment: Patient presents with back pain. Patient was here 5 days ago and was transferred to [place]. CT abdomen and pelvis today shows a right effusion and right lung infiltrate. Patient is on dialysis Wednesday and missed her dialysis today. EKG showed a normal sinus rhythm with a rate of 72 and a normal axis. I talked to at [facility] (authorization number [id number]) who said he will try to arrange an ALS ambulance to transport the patient to [place] facility. <Roddy Banegas - Last Filed: 07/19/17 19:49> ED Septic Shock - . Is Septic Shock (SBP<90, OR Lactate>4 mmol\L) present?: No - <6hrs of presentation: Vital Signs: Vital Signs - 8 hr 07/19/17 14:55 Temp 98.9 F HR 81 RR 16 BP 136/65 O2 Sat % 94 <Bradley Mantilla - Last Filed: 07/19/17 19:05> - <6hrs of presentation: Vital Signs: Vital Signs - 8 hr 07/19/17 07/19/17 07/19/17 14:55 17:37 18:00 Temp 98.9 F 97.6 F 97.2 F HR 81 71 71 RR 16 15 16 BP 136/65 149/62 136/55 O2 Sat % 94 99 99 <Roddy Banegas - Last Filed: 07/19/17 19:49> ED Reassessment (Disposition) - Reassessment Reassessment Condition:: Improved - Diagnosis Diagnosis:: Dx: Anemia; Leukopenia; CHF; ESRD; CKD; Back Pain; Pleural Effusion; PNA <Bradley Mantilla - Last Filed: 07/19/17 19:05>
[2017-07-19 15:55] LABS: HEMATOCRIT 24.9 % (41.0-60); HEMOGLOBIN 8.6 gm/dL (12-16); MEAN CELL VOLUME 93.4 fl (81-100); MEAN CORPUSCULAR HEMOGLOBIN 32.3 pg (27.0-31.0); MEAN CORPUSCULAR HGB CONC 34.5 pg (28.0-36.0); MEAN PLATELET VOLUME 7.5 fl; PLATELET COUNT 48 Th/cmm (150-400); RED BLOOD COUNT 2.67 Mil/cmm (3.80-5.20); RED CELL DISTRIBUTION WIDTH 26.3 % (11.5-20.0)
[2017-07-19 16:23] LABS: ALB/GLOB RATIO 0.7 (1.0-1.8); ALBUMIN 2.8 gm/dL (3.7-5.3); ANION GAP 13.6 (7.0-16.0); BILIRUBIN,TOTAL 2.1 mg/dL (0.3-1.0); CARBON DIOXIDE 22.6 mEq/L (21.0-31.0); GFR AFRICAN-AMERICAN 9.4 ml/min (>90); GFR NON AFRICAN-AMERICAN 7.7 ml/min; POTASSIUM SERUM 5.2 mEq/L (3.5-5.1); TOTAL PROTEIN,SERUM 6.6 gm/dL (6.0-8.3)
[2017-07-19 16:24] LABS: MANUAL DIFF REQUIRED? YES; WHITE BLOOD COUNT 3.8 Th/cmm (4.8-10.8)
[2017-07-19 16:36] LABS: INR 1.15 (0.5-1.4); PROTHROMBIN TIME (TEST) 12.1 SECONDS (9.5-11.5)
[2017-07-19 16:50] LABS: CREATININE - SERUM 5.8 mg/dL (0.6-1.2)
[2017-07-19 16:59] LABS: BAND NEUTROPHILE 0 % (0-10); BASOPHIL 0 % (0-3); EOSINOPHIL 4 % (0-5); LYMPHOCYTE 22 % (20-50); MONOCYTE 10 % (2-10); NEUTROPHILS 64 % (40-80); PLATELET ESTIMATE DECREASED PLATELETS (NORMAL); TOTAL CELLS COUNTED 100
[2017-07-19 17:00] LABS: ANISOCYTOSIS 3+; PLATELET MORPHOLOGY NORMAL (NORMAL)
[2017-07-19] MEDS ORDERED: Levofloxacin 500mg/100mL 500 MG/100 ML BAG IV ONE ×2 (17:02→17:25)
--- NOTE | 2017-07-20 08:21 | Diagnostic Imaging Report ---
CHEST X-RAY: AP view INDICATION: Shortness of breath COMPARISON: 07/14/2017 FINDINGS: Right dialysis catheter stable. Persistent right effusion is seen with right lung infiltrates. Cardiomegaly is noted. IMPRESSION: Persistent right effusion and right lung infiltrates.
--- NOTE | 2017-07-20 08:40 | Diagnostic Imaging Report ---
CT abdomen and pelvis without intravenous contrast Indication: Abdominal pain, rule out aortic aneurysm Comparison: CT abdomen and pelvis on 07/14/2017, Technique: Axial images were obtained from the lung bases to the bilateral proximal femurs without IV contrast. Coronal reconstructions were made. total DLP: 454, CTDI8.5 FINDINGS: There is a at least moderate size right pleural effusion, partially visualized right basal passive atelectatic/consolidative changes. Bibasal atelectatic changes are also noted. Partially visualized vascular catheter is seen terminating at the cavoatrial junction. Mild generalized ascites is seen with mild haziness inflammatory changes seen throughout the abdominal pelvic fat planes. Assessment of the solid organs is limited due to lack of IV contrast. Assessment of the aorta is also limited due to lack of IV contrast. There is no evidence of an aortic aneurysm. Mild atherosclerosis is noted. Severely cirrhotic liver is noted. No focal lesions. Patient status post cholecystectomy. Mild splenomegaly is noted. Varices of the left upper quadrant are suspected. No focal splenic lesions. The left adrenal gland is poorly visualized. No focal abnormalities of the right adrenal gland. No evidence of hydronephrosis or nephrolithiasis. Left hip arthroplasty seen with streak artifact limiting assessment of regional soft tissues. Copious stool is seen with throughout the colon. There is mild diverticulosis without evidence of diverticulitis. There is mild bowel wall thickening of the ascending colon. Appendix is not visualized. There is diffuse anasarca. Left hip arthroplasty is seen unchanged since prior exam. Advancing changes right hip joint is noted. Osteopenia is noted. Mild lower thoracic and upper lumbar chronic compression deformities are noted. IMPRESSION: Limited exam due to lack of IV contrast. Mild atherosclerosis is noted. No evidence of an aortic aneurysm. Mild generalized ascites and haziness and inflammatory change throughout the abdominal and pelvic fat planes. Copious stool noted. Diverticulosis. Mild ascending colonic wall thickening which may be due to inflammatory /infectious or infiltrative process. Severely cirrhotic liver. Splenomegaly. There are probable left upper quadrant varices. Note assessment was limited due to lack of IV contrast. Moderate to large right effusion right basal passive atelectasis/consolidative changes. Diffuse anasarca. Please refer above for details.
== END 2017-07-20 00:12 | disposition short-term general hospital (02) ==
LOC: ER 14:55
DX: D64.9 Anemia, unspecified (principal); D72.819 Decreased white blood cell count, unspecified; E11.22 Type 2 diabetes mellitus with diabetic chronic kidney disease; I13.2 Hypertensive heart and chronic kidney disease with heart failure and with stage 5 chronic kidney disease, or end stage renal disease; I50.9 Heart failure, unspecified; N18.6 End stage renal disease; J90 Pleural effusion, not elsewhere classified; M54.9 Dorsalgia, unspecified; Z88.2 Allergy status to sulfonamides; Z88.8 Allergy status to other drugs, medicaments and biological substances
CPT/HCPCS: 99285; 96365; 96375; 94760; 93005; 71045; 74176; 84484; 83880; 36415; 83605 ×2; 85007; 85027; 85025; 85610; 82550; 80053; 80061; 87081; 87040; J1885; J1956